=== PATIENT | female | born 1960 | race Caucasian/White ===

== ENCOUNTER 2018-11-25 17:15 | Emergency (ER) | payer MEDICAID ==
[2018-11-25] MEDS ORDERED: IPRATROPIUM/ALBUTEROL 0.5-2.5 MG/3 ML AMPUL NEB ONE ×2 (19:03→20:27)
--- NOTE | 2018-11-25 19:03 | ER Document Report ---
ED Medical Screen (RME) - General Chief Complaint: Cold Symptoms Stated Complaint: COUGH Time Seen by Provider: 11/25/18 18:53 Notes: 58-year-old female patient emergency department chief complaint of cough. States that she does take an ERIBERTO inhibitor. Has never been told that that could be causing her cough. States that her cough has been present for 3 months. EMS brought her here today. Gave her something in the IV and she feels better now. Sometimes she feels like the coughing is worse at night. Sometimes she feels like she cannot breathe. I have greeted and performed a rapid initial assessment of this patient. A comprehensive ED assessment and evaluation of the patient, analysis of test results and completion of the medical decision making process will be conducted by additional ED providers. TRAVEL OUTSIDE OF THE [place] IN LAST 30 DAYS: No - Related Data Allergies/Adverse Reactions: cephalexin [Cephalexin] Allergy (Verified 11/12/13 12:02) Penicillins Allergy (Verified 11/12/13 12:02) NSAIDS (Non-Steroidal Anti-Inflamma [Nsaids] Adverse Reaction (Unknown, Verified 11/12/13 12:02) GI BLEEDING "anti inflammatory meds" Allergy (Uncoded 11/12/13 12:02) Past Medical History - General Information source: Patient - Social History Cigarette use (# per day): No Frequency of alcohol use: None Drug Abuse: None Lives with: Family Family history: Reviewed & Not Pertinent - Past Medical History Cardiac Medical History: Reports: Hx Hypertension Denies: Hx Atrial Fibrillation, Hx Congestive Heart Failure, Hx Coronary Artery Disease, Hx DVT, Hx Heart Attack, Hx Hypercholesterolemia, Hx Peripheral Vascular Disease, Hx Pulmonary Embolism Pulmonary Medical History: Denies: Hx Asthma, Hx Bronchitis, Hx COPD, Hx Pneumonia Neurological Medical History: Denies: Hx Cerebrovascular Accident, Hx Migraine, Hx Seizures Endocrine Medical History: Reports: Hx Diabetes Mellitus Type 2 Renal/ Medical History: Reports: Hx Kidney Stones. Denies: Hx Ectopic , Hx End Stage Renal Disease, Hx Hemodialysis, Hx Hydrocele, Hx Ovarian Cysts, Hx Peritoneal Dialysis, Hx Pelvic Inflammatory Disease, Hx Renal Insufficiency, Hx Varicocele Malignancy Medical History: Denies: Hx Bone Cancer, Hx Brain Cancer, Hx Breast Cancer, Hx Cervical Cancer, Hx Colorectal Cancer, Hx Leukemia, Hx Liver Cancer, Hx Lung Cancer, Hx Lymphoma, Hx Ovarian Cancer, Hx Pancreatic Cancer, Hx Renal (Kidney) Cancer, Hx Skin Cancer GI Medical History: Reports: Hx Gastroesophageal Reflux Disease, Hx Ulcer. Denies: Hx Cirrhosis, Hx Crohn's Disease, Hx Diverticulitis, Hx Gastritis, Hx Hepatitis, Hx Hiatal Hernia, Hx Irritable Bowel, Hx Liver Failure, Hx Ulcerative Colitis Musculoskeltal Medical History: Denies Hx Arthritis, Denies Hx Fibromyalgia, Den ies Hx Gout, Denies Hx Multiple Sclerosis, Denies Hx Muscular Dystrophy, Denies Hx Muscle Spasm, Denies Hx Muscle Weakness, Denies Hx Musculoskeletal Deformity, Denies Hx Musculoskeletal Trauma Psychiatric Medical History: Reports: Hx Anxiety Denies: Hx Attention Deficit Hyperactivity Disorder, Hx Bipolar Disorder, Hx Borderline Personality Disorder, Hx Dementia, Hx Depression, Hx Obsessive Compulsive Disorder, Hx Personality Disorder, Hx Post Traumatic Stress Disorder, Hx Schizoaffective Disorder, Hx Schizophrenia Traumatic Medical History: Denies: Hx Fractures, Hx Gunshot Wound, Hx Liver Laceration, Hx Pneumothorax, Hx Spine Fracture, Hx Spleen Laceration/Rupture, Hx Traumatic Brain Injury Infectious Medical History: Denies: Hx Hepatitis Past Surgical History: Reports: Hx Appendectomy, Hx Section - 3, Hx Gynecologic Surgery - ,, Hx Hysterectomy, Hx Orthopedic Surgery - back, L ACL, Toes, R shoulder. Denies: Hx Abdominal Surgery, Hx Adenoidectomy, Hx Bowel Diversion, Hx Bowel Surgery, Hx Breast Surgery, Hx Cardiac Catheterization, Hx Cardiac Surgery, Hx Carotid Endarterectomy, Hx Cholecystectomy, Hx Colostomy, Hx Coronary Artery Bypass Graft, Hx Coronary Stent, Hx Dilation and Curettage, Hx Gastric Bypass Surgery, Hx Genitourinary Surgery, Hx Herniorrhaphy, Hx Ileostomy, Hx Inguinal Hernia, Hx Internal Defibrillator, Hx Kidney (Renal Surgery), Hx Lumpectomy, Hx Mastectomy, Hx Myringotomy, Hx Neurologic Surgery, Hx Nose Surgery, Hx Open Heart Surgery, Hx O ral Surgery, Hx Pacemaker, Hx Pancreatic Surgery, Hx Pituitary Surgery, Hx Rectal Surgery, Hx Thyroid Surgery, Hx Tonsillectomy, Hx Tubal Ligation, Hx Umbilical Hernia, Hx Urinary Tract Surgery, Hx Urostomy, Hx Valve Replacement, Hx Vascular Surgery, 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 Gastrointestinal: denies: Abdominal pain, Diarrhea, Nausea, Vomiting, Black stools, bright red blood in stool Genitourinary: denies: Burning, Dysuria, Discharge, Frequency, Flank pain, Hematuria Musculoskeletal: denies: Joint pain, Joint swelling, Muscle pain, Muscle stiffness, back pain Hematologic/Lymphatic: denies: Anemia, Easy bleeding, Easy bruising, Blood clots Neurological/Psychological: denies: Confusion, Dementia, Depression, Loss of consciousness Skin: No lesions, no masses, no skin breakdown, no abscesses Physical Exam - Vital signs Vitals: Temp Pulse Resp BP Pulse Ox 99.2 F 103 H 22 H 158/102 H 95 11/25/18 17:22 11/25/18 17:22 11/25/18 17:22 11/25/18 17:22 11/25/18 17:22 Interpretation: Normal - General General appearance: Appears well, Alert - HEENT Head: Normocephalic, Atraumatic Eyes: Normal Pupils: PERRL - Respiratory Respiratory status: No respiratory distress Chest status: Nontender Breath sounds: Normal Chest palpation: Normal - Cardiovascular Rhythm: Regular Heart sounds: Normal auscultation Murmur: No - Abdominal Inspection: Normal Distension: No distension Bowel sounds: Normal Tenderness: Nontender Organomegaly: No organomegaly - Back Back: Normal, Nontender - Extremities General upper extremity: Normal inspection, Nontender, Normal color, Normal ROM, Normal temperature General lower extremity: Normal inspection, Nontender, Normal color, Normal ROM, Normal temperature, Normal weight bearing. No: Shi's sign - Neurological Neuro grossly intact: Yes Cognition: Normal Orientation: AAOx4 [place] Coma Scale Eye Opening: Spontaneous [place] Coma Scale Verbal: Oriented [place] Coma Scale Motor: Obeys Commands [place] Coma Scale Total: 15 Speech: Normal Motor strength normal: LUE, RUE, LLE, RLE Sensory: Normal - Psychological Associated symptoms: Normal affect, Normal mood - Skin Skin Temperature: Warm Skin Moisture: Dry Skin Color: Normal Course - Vital Signs Vital signs: Temp Pulse Resp BP Pulse Ox 99.2 F 103 H 22 H 158/102 H 95 11/25/18 17:22 11/25/18 17:22 11/25/18 17:22 11/25/18 17:22 11/25/18 17:22
--- NOTE | 2018-11-25 19:52 | RADIOLOGY REPORT (SQ) ---
EXAM DESCRIPTION: CHEST 2 VIEWS COMPLETED DATE/TIME: 11/25/2018 7:17 pm REASON FOR STUDY: cough COMPARISON: 09/10/2013 TECHNIQUE: Frontal and lateral radiographic views of the chest acquired. NUMBER OF VIEWS: Two view. LIMITATIONS: None. FINDINGS: LUNGS AND PLEURA: No pneumothorax. No consolidation or pleural effusion. MEDIASTINUM AND HILAR STRUCTURES: Stable. HEART AND VASCULAR STRUCTURES: Stable. BONES: No acute findings. HARDWARE: None in the chest. OTHER: No other significant finding. IMPRESSION: NO ACUTE FINDINGS. TECHNICAL DOCUMENTATION: JOB ID: [id number] [place]-72 2010 [employer]- All Rights Reserved Reading location - IP/workstation name: [email or web address]
[2018-11-25] MEDS ORDERED: MORPHINE SULFATE 10 MG/ML INJ IV ONE ×2 (20:27→22:05)
[2018-11-25] MEDS ORDERED: GUAIFENESIN/D-METHORPHAN (200-20 MG) SYRUP 10 ML PO ONE (20:27)
[2018-11-25] MEDS ORDERED: ONDANSETRON HCL INJ/PF 4 MG/2 ML SDV IV ONE (20:27)
[2018-11-25] MEDS ORDERED: DOXYCYCLINE HYCLATE 100 MG TABLET PO ONE (20:28)
[2018-11-25] MEDS ORDERED: METHYLPREDNISOLONE INJ 125 MG/2 ML SDV IV ONE (20:37)
[2018-11-25] MEDS ORDERED: OXYMETAZOLINE HCL 0.05% NASAL SPRAY 15 ML BOTTLE NASL ONE (20:41)
--- NOTE | 2018-11-25 20:41 | ER Document Report ---
ED General - General Chief Complaint: Cold Symptoms Stated Complaint: COUGH Time Seen by Provider: 11/25/18 18:53 Mode of Arrival: Medic Information source: Patient, [facility] Records Notes: 58-year-old female with, bronchitis, GERD, hypertension presents with complaint of cough, sore throat, nasal congestion that has been ongoing for 3 months. Patient describes the cough as persistent, productive and associated with severe left breast pain with coughing only. Patient also reports shortness of breath with coughing. She admits to sick contact, with family members at home with similar symptoms. She did not receive a flu shot this year. She reports subjective fever, nausea, vomiting and diarrhea for 2 days. TRAVEL OUTSIDE OF THE [place] IN LAST 30 DAYS: No - HPI Onset: Other Onset/Duration: Persistent Quality of pain: Achy, Throbbing Severity: Moderate Associated symptoms: Chest pain, Productive cough, Fever, Nausea, Shortness of breath Exacerbated by: Coughing Relieved by: Denies Similar symptoms previously: Yes Recently seen / treated by doctor: No - Related Data Allergies/Adverse Reactions: cephalexin [Cephalexin] Allergy (Verified 11/12/13 12:02) Penicillins Allergy (Verified 11/12/13 12:02) NSAIDS (Non-Steroidal Anti-Inflamma [Nsaids] Adverse Reaction (Unknown, Verified 11/12/13 12:02) GI BLEEDING "anti inflammatory meds" Allergy (Uncoded 11/12/13 12:02) Past Medical History - General Information source: Patient - Social History Smoking Status: Never Smoker Cigarette use (# per day): No Frequency of alcohol use: None Drug Abuse: None Lives with: Family Family History: Reviewed & Not Pertinent Patient has suicidal ideation: No Patient has homicidal ideation: No - Past Medical History Cardiac Medical History: Reports: Hx Hypertension Denies: Hx Atrial Fibrillation, Hx Congestive Heart Failure, Hx Coronary Artery Disease, Hx DVT, Hx Heart Attack, Hx Hypercholesterolemia, Hx Peripheral Vascular Disease, Hx Pulmonary Embolism Pulmonary Medical History: Denies: Hx Asthma, Hx Bronchitis, Hx COPD, Hx Pneumonia Neurological Medical History: Denies: Hx Cerebrovascular Accident, Hx Migraine, Hx Seizures Endocrine Medical History: Reports: Hx Diabetes Mellitus Type 2 Renal/ Medical History: Reports: Hx Kidney Stones. Denies: Hx Ectopic , Hx End Stage Renal Disease, Hx Hemodialysis, Hx Hydrocele, Hx Ovarian Cysts, Hx Peritoneal Dialysis, Hx Pelvic Inflammatory Disease, Hx Renal Insufficiency, Hx Varicocele Malignancy Medical History: Denies: Hx Bone Cancer, Hx Brain Cancer, Hx Breast Cancer, Hx Cervical Cancer, Hx Colorectal Cancer, Hx Leukemia, Hx Liver Cancer, Hx Lung Cancer, Hx Lymphoma, Hx Ovarian Cancer, Hx Pancreatic Cancer, Hx Renal (Kidney) Cancer, Hx Skin Cancer GI Medical History: Reports: Hx Gastroesophageal Reflux Disease, Hx Ulcer. Denies: Hx Cirrhosis, Hx Crohn's Disease, Hx Diverticulitis, Hx Gastritis, Hx Hepatitis, Hx Hiatal Hernia, Hx Irritable Bowel, Hx Liver Failure, Hx Ulcerative Colitis Musculoskeletal Medical History: Denies Hx Arthritis, Denies Hx Fibromyalgia, Denies Hx Gout, Denies Hx Multiple Sclerosis, Denies Hx Muscular Dystrophy, Denies Hx Muscle Spasm, Denies Hx Muscle Weakness, Denies Hx Musculoskeletal Deformity, Denies Hx Musculoskeletal Trauma Psychiatric Medical History: Reports: Hx Anxiety Denies: Hx Attention Deficit Hyperactivity Disorder, Hx Bipolar Disorder, Hx Borderline Personality Disorder, Hx Dementia, Hx Depression, Hx Obsessive Compulsive Disorder, Hx Personality Disorder, Hx Post Traumatic Stress Disorder, Hx Schizoaffective Disorder, Hx Schizophrenia Traumatic Medical History: Denies: Hx Fractures, Hx Gunshot Wound, Hx Liver Laceration, Hx Pneumothorax, Hx Spine Fracture, Hx Spleen Laceration/Rupture, Hx Traumatic Brain Injury Infectious Medical History: Denies: Hx Hepatitis Past Surgical History: Reports: Hx Appendectomy, Hx Section - 3, Hx Gynecologic Surgery - ,, Hx Hysterectomy, Hx Orthopedic Surgery - back, L ACL, Toes, R shoulder. Denies: Hx Abdominal Surgery, Hx Adenoidectomy, Hx Bowel Diversion, Hx Bowel Surgery, Hx Breast Surgery, Hx Cardiac Catheterization, Hx Cardiac Surgery, Hx Carotid Endarterectomy, Hx Cholecystectomy, Hx Colostomy, Hx Coronary Artery Bypass Graft, Hx Coronary Stent, Hx Dilation and Curettage, Hx Gastric Bypass Surgery, Hx Genitourinary Surgery, Hx Herniorrhaphy, Hx Ileostomy, Hx Inguinal Hernia, Hx Internal Defibrillator, Hx Kidney (Renal Surgery), Hx Lumpectomy, Hx Mastectomy, Hx Myringotomy, Hx Neurologic Surgery, Hx Nose Surgery, Hx Open Heart Surgery, Hx Oral Surgery, Hx Pacemaker, Hx Pancreatic Surgery, Hx Pituitary Surgery, Hx Rectal Surgery, Hx Thyroid Surgery, Hx Tonsillectomy, Hx Tubal Ligation, Hx Umbilical Hernia, Hx Urinary Tract Surgery, Hx Urostomy, Hx Valve Replacement, Hx Vascular Surgery, 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 denies: Eye pain, Difficulty swallowing Cardiovascular: Chest pain - With coughing only Respiratory: Cough, Hurts to breathe, Short of breath Gastrointestinal: Nausea, Vomiting Genitourinary: denies: Dysuria, Flank pain Female Genitourinary: No symptoms reported Musculoskeletal: Muscle pain Skin: denies: Rash Hematologic/Lymphatic: No symptoms reported Neurological/Psychological: Headaches -: Yes All other systems reviewed and negative Physical Exam - Vital signs Vitals: Temp Pulse Resp BP Pulse Ox 99.2 F 103 H 22 H 158/102 H 95 11/25/18 17:22 11/25/18 17:22 11/25/18 17:22 11/25/18 17:22 11/25/18 17:22 - Notes Notes: PHYSICAL EXAMINATION: GENERAL: Ill-appearing, persistently coughing HEAD: Atraumatic, normocephalic. EYES: Pupils equal round and reactive to light, extraocular movements intact, conjunctiva are normal. ENT: Nares patent, oropharynx clear without exudates. Moist mucous membranes. NECK: Normal range of motion, supple without lymphadenopathy LUNGS: Breath sounds clear to auscultation bilaterally and equal. No wheezes rales or rhonchi. Harsh persistent cough. HEART: Tachycardic, regular rhythm without murmurs ABDOMEN: Soft, nontender, nondistended abdomen. No guarding, no rebound. No masses appreciated. Female : deferred Musculoskeletal: Normal range of motion, no pitting or edema. No cyanosis. NEUROLOGICAL: Cranial nerves grossly intact. Normal speech, normal gait. Normal sensory, motor exams PSYCH: Normal mood, normal affect. SKIN: Warm, Dry, normal turgor, no rashes or lesions noted. Course - Re-evaluation Re-evalutation: Temp Pulse Resp BP Pulse Ox 99.2 F 103 H 22 H 158/102 H 95 11/25/18 17:22 11/25/18 17:22 11/25/18 17:22 11/25/18 17:22 11/25/18 17:22 Laboratory 11/25/18 11/25/18 11/25/18 22:02 22:52 22:52 WBC 6.8 RBC 4.85 Hgb 13.7 Hct 39.0 MCV 81 MCH 28.3 MCHC 35.1 RDW 13.0 Plt Count 293 Seg Neutrophils % 86.4 H Lymphocytes % 10.4 L Monocytes % 2.5 L Eosinophils % 0.6 Basophils % 0.1 Absolute Neutrophils 5.9 Absolute Lymphocytes 0.7 Absolute Monocytes 0.2 Absolute Eosinophils 0.0 Absolute Basophils 0.0 Sodium 142.3 Potassium 3.3 L Chloride 107 Carbon Dioxide 20 L Anion Gap 15 BUN 23 H Creatinine 1.00 Est GFR ( Amer) > 60 Est GFR (Non-Af Amer) 57 L Glucose 105 Calcium 9.6 Troponin I Influenza A (Rapid) NEGATIVE Influenza B (Rapid) NEGATIVE 11/25/18 22:52 WBC RBC Hgb Hct MCV MCH MCHC RDW Plt Count Seg Neutrophils % Lymphocytes % Monocytes % Eosinophils % Basophils % Absolute Neutrophils Absolute Lymphocytes Absolute Monocytes Absolute Eosinophils Absolute Basophils Sodium Potassium Chloride Carbon Dioxide Anion Gap BUN Creatinine Est GFR ( Amer) Est GFR (Non-Af Amer) Glucose Calcium Troponin I 0.015 Influenza A (Rapid) Influenza B (Rapid) Chest X-Ray 11/25/18 19:02 IMPRESSION: NO ACUTE FINDINGS. Chest/Abdomen CTA 11/25/18 22:04 IMPRESSION: Suboptimal contrast bolus. No large or central pulmonary embolus. Volume loss of the left hemithorax. The lungs are clear. Fatty infiltrative change to the liver. Small hiatal hernia TECHNICAL DOCUMENTATION: Quality ID # 436: Final reports with documentation of one or more dose reduction techniques (e.g., Automated exposure control, adjustment of the mA and/or kV according to patient size, use of iterative reconstruction technique) copyright 2011 [employer]- All Rights Reserved 11/25/18 22:00 58-year-old female presents with 3 months of intermittent cough, sore throat, nasal congestion. Patient states that this is been ongoing for 3 months. She states that she has had this persistent cough that will get better and then returned. Recently completed a course of erythromycin. Patient does not smoke. Vital signs reviewed upon arrival and patient is tachycardic but did receive breathing treatments in route and prior to my exam. Patient is hypertensive, afebrile, ill-appearing and has a persistent harsh cough. EKG was obtained and shows patient to be in sinus rhythm with a rate of 95 and diffuse T wave abnormalities. This is a change from prior EKG which just showed borderline T wave inversion. 11/25/18 22:25 Bedside ultrasound was performed over the right axilla where the patient is complaining of pain and there is some mild induration but there is no definitive fluid pocket or associated cobblestoning. Lung scan was also obtained and showed a lines, no B-lines to suggest interstitial edema. CTA with outevidence of PE, Pneumonia. Patient did report improvement of symptoms prior to discharge. CBC is without leukocytosis, anemia. BMP within normal limits. Troponin is also within normal limits. Influenza is negative. Patient was evaluated and treated as appropriate for the patient's presenting symptoms and complaint, with consideration of any critical or life threatening conditions that may be associated with their obtained history and exam as noted above. All results were discussed with patient. Patient provided the opportunity to ask questions, and express concerns. Patient was educated on treatments based on their presumed diagnosis as noted above. At this time we will discharge the patient with return precautions and follow-up recommendations. Verbal discharge instructions given a the bedside. Medication warnings reviewed. Patient is in agreement with this plan and has verbalized understanding of return precautions. After careful consideration I feel that that patient can be safely discharged from the emergency department, they were advised to followup with a primary care physician in 2-3 days. Dictation on this chart was performed using voice recognition software and may result in unintended grammatical, spelling, syntax or errors. 11/26/18 00:31 11/26/18 14:41 - Vital Signs Vital signs: Temp Pulse Resp BP Pulse Ox 97.2 F 88 18 210/108 H 96 11/26/18 01:18 11/26/18 01:18 11/26/18 01:18 11/26/18 01:18 11/26/18 01:18 - Laboratory Result Diagrams: 11/25/18 22:52 11/25/18 22:52 Laboratory results interpreted by me: 11/25/18 11/25/18 22:52 22:52 Seg Neutrophils % 86.4 H Lymphocytes % 10.4 L Monocytes % 2.5 L Potassium 3.3 L Carbon Dioxide 20 L BUN 23 H Est GFR (Non-Af Amer) 57 L - Diagnostic Test Radiology reviewed: Image reviewed, Reports reviewed - EKG Interpretation by Me EKG shows normal: Sinus rhythm Rate: Normal Discharge - Discharge Clinical Impression: Bronchitis, Chest wall pain with coughing, Nasal congestion Hypertension Qualifiers: Hypertension type: unspecified Qualified Code(s): I10 - Essential (primary) hy pertension Condition: Good Disposition: HOME, SELF-CARE Instructions: Chest Wall Pain ([facility]) Prescriptions: RX: Doxycycline Hyclate 100 mg PO BID #14 capsule RX: Prednisone [Deltasone 20 mg Tablet] 3 tab PO DAILY 5 Days #15 tablet Forms: Elevated Blood Pressure
[2018-11-25] MEDS ORDERED: DIPHENHYDRAMINE HCL 50 MG/ML VIAL ONE (22:17)
[2018-11-25] MEDS ORDERED: DIPHENHYDRAMINE HCL 50 MG/ML VIAL IV ONE (22:24)
[2018-11-25 22:43] LABS: A TYPE INFLUENZA AG NEGATIVE (NEGATIVE); B INFLUENZA AG NEGATIVE (NEGATIVE)
[2018-11-25 23:07] LABS: ABSOLUTE LYMPHOCYTES (AUTO) 0.7 10^3/uL (0.5-4.7); ABSOLUTE MONOCYTES (AUTO) 0.2 10^3/uL (0.1-1.4); ABSOLUTE NEUT (AUTO) 5.9 10^3/uL (1.7-8.2); BASOPHILS % (AUTO) 0.1 % (0-2); EOSINOPHILS % (AUTO) 0.6 % (0-6); HEMOGLOBIN 13.7 g/dL (12.0-15.5); LYMPHOCYTES % (AUTO) 10.4 % (13-45); MEAN CORPUSCULAR HEMOGLOBIN 28.3 pg (27.0-33.4); MEAN CORPUSCULAR HGB CONC 35.1 g/dL (32.0-36.0); MEAN CORPUSCULAR VOLUME 81 fl (80-97); MONOCYTES % (AUTO) 2.5 % (3-13); PLATELET COUNT 293 10^3/uL (150-450); RED BLOOD COUNT 4.85 10^6/uL (3.72-5.28); SEGMENTED NEUTROPHILS % (AUTO) 86.4 % (42-78); TOTAL CELLS COUNTED % (AUTO) 100 %; WHITE BLOOD COUNT 6.8 10^3/uL (4.0-10.5)
[2018-11-25 23:28] LABS: ANION GAP 15 (5-19); BLOOD UREA NITROGEN 23 mg/dL (7-20); CALCIUM 9.6 mg/dL (8.4-10.2); CARBON DIOXIDE 20 mmol/L (22-30); CHLORIDE 107 mmol/L (98-107); GLUCOSE 105 mg/dL (75-110); POTASSIUM 3.3 mmol/L (3.6-5.0); SODIUM 142.3 mmol/L (137-145)
[2018-11-26] MEDS ORDERED: POTASSIUM CHLORIDE 10 MEQ CAPSULE.ER PO ONE
--- NOTE | 2018-11-26 00:24 | RADIOLOGY REPORT (SQ) ---
EXAM DESCRIPTION: CT CHEST ANGIOGRAPHY WITHOUT THEN WITH IV CONTRAST COMPLETED DATE/TME: 11/25/2018 22:04 CLINICAL HISTORY: 58 years, Female, cough/fever COMPARISON: None. TECHNIQUE: 607 Images stored on PACS. All CT scanners at this facility use dose modulation, iterative reconstruction, and/or weight based dosing when appropriate to reduce radiation dose to as low as reasonably achievable (ALARA). Axial CTA images were obtained with coronal and sagittal MIPS reconstructions [facility]: Dose Right [facility]: CareDose [facility]: Dose Right [facility]: Teradose 4D [facility]: [employer] LIMITATIONS: None. FINDINGS: Mediastinal vasculature enhances normally. However, contrast bolus is significantly suboptimal. Evaluation of the distal pulmonary arterial branches is nondiagnostic. There is no large or central pulmonary embolus. Negative for thoracic aortic aneurysm or dissection. Small hiatal hernia. No mediastinal or hilar adenopathy. Heart and pericardium are unremarkable. Limited evaluation of the upper abdomen shows fatty infiltrative change to the liver. Osseous structures are grossly intact. Volume loss of the left hemithorax. Lungs are clear. Visualized airways are patent IMPRESSION: Suboptimal contrast bolus. No large or central pulmonary embolus. Volume loss of the left hemithorax. The lungs are clear. Fatty infiltrative change to the liver. Small hiatal hernia TECHNICAL DOCUMENTATION: Quality ID # 436: Final reports with documentation of one or more dose reduction techniques (e.g., Automated exposure control, adjustment of the mA and/or kV according to patient size, use of iterative reconstruction technique) copyright 2011 [employer]- All Rights Reserved
[2018-11-26] MEDS ORDERED: MORPHINE SULFATE 10 MG/ML INJ IV ONE (00:57)
[2018-11-26 01:35] VITALS: BP 210/108
--- NOTE | 2018-11-26 12:34 | EKG REPORT ---
SEVERITY:- ABNORMAL ECG - SINUS RHYTHM PROBABLE LEFT ATRIAL ABNORMALITY ABNORMAL T, CONSIDER ISCHEMIA, DIFFUSE LEADS : Confirmed by: Clarita Mathias MD 26-Nov-2018 12:34:15
== END 2018-11-26 01:22 | disposition home or self-care (01) ==
LOC: ER 17:15
DX: J40 Bronchitis, not specified as acute or chronic (principal); R07.89 Other chest pain; I10 Essential (primary) hypertension; R05 Cough; J02.9 Acute pharyngitis, unspecified; R07.1 Chest pain on breathing; R09.81 Nasal congestion; R06.02 Shortness of breath; R11.2 Nausea with vomiting, unspecified; R19.7 Diarrhea, unspecified; R50.9 Fever, unspecified; R53.81 Other malaise; M79.10 Myalgia, unspecified site; R51 Headache; M79.621 Pain in right upper arm; R00.0 Tachycardia, unspecified; K44.9 Diaphragmatic hernia without obstruction or gangrene; E11.9 Type 2 diabetes mellitus without complications; Z88.1 Allergy status to other antibiotic agents; Z88.0 Allergy status to penicillin
CPT/HCPCS: 93005; 96376; 94640 ×2; 99284; 96374; 96375; 36415; 85025; 80048; 84484; 87804; 71046; 71275; 93010; J1200; J3490 ×3; J2930; J2270 ×2; J2405; J7620

== ENCOUNTER 2020-02-26 09:45 | Emergency (ER) | payer MEDICAID ==
[2020-02-26 09:51] VITALS: BP 161/81
--- NOTE | 2020-02-26 09:56 | ER Document Report ---
HPI - HPI Patient complains to provider of: Knee pain Time Seen by Provider: 02/26/20 09:54 Onset: Just prior to arrival Onset/Duration: Sudden Context: This 59-year-old female presents emergency room today stating that she had fallen yesterday striking her left knee she is able to ambulate on it however it hurts quite a bit and hurts more today than it did yesterday. No deformity noted. Exacerbated by: Movement Relieved by: Denies - REPRODUCTIVE Reproductive: DENIES: : Past Medical History - General Information source: Patient - Social History Smoking Status: Never Smoker Cigarette use (# per day): No Chew tobacco use (# tins/day): No Smoking Education Provided: No Family History: Reviewed & Not Pertinent - Past Medical History Cardiac Medical History: Reports: Hx Hypertension Denies: Hx Atrial Fibrillation, Hx Congestive Heart Failure, Hx Coronary Artery Disease, Hx DVT, Hx Heart Attack, Hx Hypercholesterolemia, Hx Peripheral Vascular Disease, Hx Pulmonary Embolism Pulmonary Medical History: Denies: Hx Asthma, Hx Bronchitis, Hx COPD, Hx Pneumonia Neurological Medical History: Denies: Hx Cerebrovascular Accident, Hx Migraine, Hx Seizures Endocrine Medical History: Reports: Hx Diabetes Mellitus Type 2 Renal/ Medical History: Reports: Hx Kidney Stones. Denies: Hx Ectopic , Hx End Stage Renal Disease, Hx Hemodialysis, Hx Hydrocele, Hx Ovarian Cysts, Hx Peritoneal Dialysis, Hx Pelvic Inflammatory Disease, Hx Renal Insufficiency, Hx Varicocele Malignancy Medical History: Denies: Hx Bone Cancer, Hx Brain Cancer, Hx Breast Cancer, Hx Cervical Cancer, Hx Colorectal Cancer, Hx Leukemia, Hx Liver Cancer, Hx Lung Cancer, Hx Lymphoma, Hx Ovarian Cancer, Hx Pancreatic Cancer, Hx Renal (Kidney) Cancer, Hx Skin Cancer GI Medical History: Reports: Hx Gastroesophageal Reflux Disease, Hx Ulcer. Denies: Hx Cirrhosis, Hx Crohn's Disease, Hx Diverticulitis, Hx Gastritis, Hx Hepatitis, Hx Hiatal Hernia, Hx Irritable Bowel, Hx Liver Failure, Hx Ulcerative Colitis Musculoskeletal Medical History: Denies Hx Arthritis, Denies Hx Fibromyalgia, Denies Hx Gout, Denies Hx Multiple Sclerosis, Denies Hx Muscular Dystrophy, Denies Hx Muscle Spasm, Denies Hx Muscle Weakness, Denies Hx Musculoskeletal Deformity, Denies Hx Musculoskeletal Trauma Psychiatric Medical History: Reports: Hx Anxiety Denies: Hx Attention Deficit Hyperactivity Disorder, Hx Bipolar Disorder, Hx Borderline Personality Disorder, Hx Dementia, Hx Depression, Hx Obsessive Compulsive Disorder, Hx Personality Disorder, Hx Post Traumatic Stress Disorder, Hx Schizoaffective Disorder, Hx Schizophrenia Traumatic Medical History: Denies: Hx Fractures, Hx Gunshot Wound, Hx Liver Laceration, Hx Pneumothorax, Hx Spine Fracture, Hx Spleen Laceration/Rupture, Hx Traumatic Brain Injury Infectious Medical History: Denies: Hx Hepatitis Past Surgical History: Reports: Hx Appendectomy, Hx Section - 3, Hx Gynecologic Surgery - ,, Hx Hysterectomy, Hx Orthopedic Surgery - back, L ACL, Toes, R shoulder. Denies: Hx Abdominal Surgery, Hx Adenoidectomy, Hx Bowel Diversion, Hx Bowel Surgery, Hx Breast Surgery, Hx Cardiac Catheterization, Hx Cardiac Surgery, Hx Carotid Endarterectomy, Hx Cholecystec lele, Hx Colostomy, Hx Coronary Artery Bypass Graft, Hx Coronary Stent, Hx Dilation and Curettage, Hx Gastric Bypass Surgery, Hx Genitourinary Surgery, Hx Herniorrhaphy, Hx Ileostomy, Hx Inguinal Hernia, Hx Internal Defibrillator, Hx Kidney (Renal Surgery), Hx Lumpectomy, Hx Mastectomy, Hx Myringotomy, Hx Neurologic Surgery, Hx Nose Surgery, Hx Open Heart Surgery, Hx Oral Surgery, Hx Pacemaker, Hx Pancreatic Surgery, Hx Pituitary Surgery, Hx Rectal Surgery, Hx Thyroid Surgery, Hx Tonsillectomy, Hx Tubal Ligation, Hx Umbilical Hernia, Hx Urinary Tract Surgery, Hx Urostomy, Hx Valve Replacement, Hx Vascular Surgery, Hx [employer] Shunt, Hx Whipple - Immunizations Hx Diphtheria, Pertussis, Tetanus Vaccination: No Vertical Provider Document - INFECTION CONTROL TRAVEL OUTSIDE OF THE [place] IN LAST 30 DAYS: No - HEENT HEENT: Atraumatic, Conjuctival Injection, Normocephalic, PERRLA - NECK Neck: Normal Inspection - RESPIRATORY Respiratory: Breath Sounds Normal, No Respiratory Distress - CARDIOVASCULAR Cardiovascular: Regular Rate, Regular Rhythm - GI/ABDOMEN Gastrointestinal: Abdomen Soft, Abdomen Non-Tender - REPRODUCTIVE Female Genitalia: Normal Inspection - BACK Back: Normal Inspection - MUSCULOSKELETAL/EXTREMETIES Musculoskeletal/Extremeties: MAEW Course - Vital Signs Vital signs: Temp Pulse Resp BP Pulse Ox 98.1 F 73 16 161/81 H 96 02/26/20 09:50 02/26/20 09:50 02/26/20 09:50 02/26/20 09:50 02/26/20 09:50 - Diagnostic Test Radiology results interpreted by me: 02/26/20 10:58 Knee X-Ray 02/26/20 09:54 IMPRESSION: Old ACL repair. No acute findings. Discharge - Discharge Clinical Impression: Knee strain Qualifiers: Encounter type: initial encounter Laterality: left Qualified Code(s): S86.912A - Strain of unspecified muscle(s) and tendon(s) at lower leg level, left leg, initial encounter Disposition: HOME, SELF-CARE Additional Instructions: Knee Immobilizing Splint The knee immobilizing splint will protect the injury while healing begins. This type of splint does not allow the knee to bend at all. No running or sports will be possible. If the splint allows painfree walking, it's giving adequate protection. If there is still significant pain, crutches may be needed as well. Don't do anything that hurts. Adjusted the splint, if necessary. The stiffeners on the sides are attached with Velcro, so they can be easily moved to adjust for thigh and calf size. If you need help with these adjustments, come back. You will lose muscle strength in the thigh while using this splint. The doctor will advise you if it's safe to do isometric knee exercises while you use it. Prescriptions: Ibuprofen [Motrin 600 Mg Tablet] 600 mg PO TID #15 tablet
--- NOTE | 2020-02-26 10:35 | RADIOLOGY REPORT (SQ) ---
EXAM DESCRIPTION: KNEE LEFT 4 VIEW IMAGES COMPLETED DATE/TIME: 02/26/2020 10:22 am REASON FOR STUDY: pain COMPARISON: 2008 NUMBER OF VIEWS: Four views. TECHNIQUE: AP, lateral, and both oblique radiographic images acquired of the left knee. LIMITATIONS: None. FINDINGS: MINERALIZATION: Normal. BONES: No acute fracture or dislocation. No worrisome bone lesions. JOINT: Unchanged hardware status post ACL reconstruction. No effusion. SOFT TISSUES: No foreign body. OTHER: No other significant finding. IMPRESSION: Old ACL repair. No acute findings. TECHNICAL DOCUMENTATION: JOB ID: [id number] 2010 [employer]- All Rights Reserved Reading location - IP/workstation name: [email or web address]
== END 2020-02-26 11:13 | disposition home or self-care (01) ==
LOC: ER 09:45
DX: S86.912A Strain of unspecified muscle(s) and tendon(s) at lower leg level, left leg, initial encounter (principal); W19.XXXA Unspecified fall, initial encounter; I10 Essential (primary) hypertension; E11.9 Type 2 diabetes mellitus without complications; Z87.442 Personal history of urinary calculi; Z90.710 Acquired absence of both cervix and uterus
CPT/HCPCS: 99283